=== PATIENT | male | born 1975 | race Native Hawaiian/Other Pacific Islander ===

== ENCOUNTER 2017-03-09 13:31 | Emergency (ER) | payer OTHER ==
[~2017-03-09] VITALS: Ht 162.6 cm; Wt 97.5 kg
== END 2017-03-09 14:17 | disposition home or self-care (01) ==
LOC: ED 13:31
DX: R22.43 Localized swelling, mass and lump, lower limb, bilateral (principal)
CPT/HCPCS: 99281

== ENCOUNTER 2017-04-12 07:22 | Outpatient (CLI) | payer OTHER ==
[2017-04-12 07:46] LABS: PLATELET COUNT 248 K/uL (142-355)
[2017-04-12 08:45] LABS: POTASSIUM 4.4 mmol/L (3.6-5.2); SODIUM 139 mmol/L (136-145)
== END 2017-04-12 08:25 | disposition home or self-care (01) ==
LOC: LABW 07:22
PROVIDERS: Internal Medicine
DX: L03.90 Cellulitis, unspecified (principal); G40.802 Other epilepsy, not intractable, without status epilepticus; D50.8 Other iron deficiency anemias; R74.8 Abnormal levels of other serum enzymes
CPT/HCPCS: 36415; 80053; 80164; 81000; 82465; 82607; 82728; 82747; 83540; 83550; 84443; 85027